=== PATIENT | male | born 1950 | race Caucasian/White ===

== ENCOUNTER 2019-07-29 06:58 | Observation (INO) | payer OTHER ==
[~2019-07-29] VITALS: Ht 170.1 cm; Wt 88.9 kg
[~2019-07-29 06:58] MED LIST: ATENOLOL100 MG PO; ATROVENT H0.017 MG/A INH; CLARITIN10 MG PO; FINASTERIDE5 MG PO; FLUNISOLID0.025 MG/A NS; GUAFENESIN400 MG PO; MOTRIN600 MG PO; OPTIVE 0.5%-0.9%5 ML OPH; OXYBUTYNIN5 MG PO; PROTONIX40 MG PO; REFRESH OPTIVE10 ML; TERAZOSIN HCL5 M1 PO; ZITHROMAX Z PA250 MG PO
[2019-07-29 07:09] VITALS: BP 157/77
[2019-07-29 07:58] LABS: BASO % 0.7 % (0.0-1.0); EOS # 0.2 10*3/uL (0.0-0.4); EOS % 3.8 % (1.0-4.0); HEMATOCRIT 44.8 % (42.0-52.0); LYMPH # 1.8 10*3/uL (1.3-4.4); LYMPH % 29.9 % (27.0-41.0); MEAN CELL VOLUME 91.1 fl (80.0-94.0); MEAN CORPUSCULAR HGB 30.1 pg (27.0-31.0); MEAN PLATELET VOLUME 10.4 fl (9.6-12.3); MONO # 0.5 10*3/uL (0.1-1.0); MONO % 7.9 % (3.0-9.0); NEUT # 3.4 10*3/uL (2.3-7.9); NEUT % 57.5 % (47.0-73.0); PLATELET COUNT AUTOMATED 127 10*3/uL (130-400); RED BLOOD COUNT 4.92 10*6/uL (4.50-5.90); RED CELL DISTRI WIDTH 13.6 % (0-14.5)
[2019-07-29 08:07] LABS: ACT PARTIAL THROMBO TIME 25.1 SECONDS (20.0-32.1)
[2019-07-29 08:14] LABS: ALBUMIN 3.6 gm/dl (3.1-4.5); ALKALINE PHOSPHATASE 81 U/L (45-117); BUN 26 mg/dl (7-24); CHLORIDE 107 mmol/L (98-107); CREATININE 1.32 mg/dL (0.70-1.30); LIPASE 161 U/L (73-393); POTASSIUM 4.5 mmol/L (3.5-5.1); SGOT/AST 41 IU/L (3-35); SGPT/ALT 62 U/L (12-78); SODIUM 139 mmol/L (136-145)
[2019-07-29 08:15] LABS: TROPONIN I < 0.015 ng/ml (<0.045)
[2019-07-29 09:18] VITALS: BP 166/89
[2019-07-29 11:03] VITALS: BP 164/88
--- NOTE | 2019-07-29 11:03 | NUR ---
A 68, admitted to , under the services of KOKO Spaulding DO with a diagnosis of ACUTE BRONCHITIS,CHEST PAIN,RULE OUT ACUTE PR. Chief complaint is "JUST DON'T FEEL RIGHT". Patient arrived via stretcher from ER. Monitor applied. Initial assessment completed. Vital signs taken and recorded. KOKO SPAULDING DO notified of admission to the unit. Orders received. See assessment for past medical history, medications and allergies. Patient and/or family oriented to unit. [address] visitation policy reviewed. Clothing/patient valuable form completed. MICHAEL ANGULO
[2019-07-29] MEDS ORDERED: DOXYCYCLINE100 M3 PO (13:18)
--- NOTE | 2019-07-29 13:40 | NUR ---
PATIENT SIGNED OUT AMA, PUMP SERVICE SUPERVISOR AND DR. SAROJ VÁSQUEZ.
== END 2019-07-29 14:12 | disposition left against medical advice (07) ==
LOC: ED 06:58 → EDHOLD 09:45 → 4E 09:45
PROVIDERS: Emergency Medicine; ADMIT Family Medicine
DX: J20.9 Acute bronchitis, unspecified (principal); N17.0 Acute kidney failure with tubular necrosis; E87.2 Acidosis; R07.89 Other chest pain; R42 Dizziness and giddiness; D69.6 Thrombocytopenia, unspecified; R73.9 Hyperglycemia, unspecified; J30.2 Other seasonal allergic rhinitis; R17 Unspecified jaundice; N40.0 Benign prostatic hyperplasia without lower urinary tract symptoms; Z23 Encounter for immunization